=== PATIENT | male | born 1975 | race Caucasian/White ===

== ENCOUNTER 2018-05-06 12:48 | Emergency (ER) | payer SELFPAY ==
--- NOTE | 2018-05-06 13:30 | ED Physician Chart ---
ED Chief Complaint/HPI - Patient Information Date Seen:: 05/06/18 Time Seen:: 13:15 Chief Complaint:: left foot pain History of Present Illness:: Admitting medical box containing an alarm fell 9-10 feet landing on the dorsum of his left foot. Patient was wearing leather work shoes. 2 weeks ago patient was bitten on his left foot by his dog when he tried to interrupt a fight between his dog and another dog. Vitals:: Vital Signs - 8 hr 05/06/18 13:04 Temp 97.2 F HR 96 RR 18 BP 140/87 O2 Sat % 100 Historian:: Patient Review:: Nurse's Note Reviewed ED Review of Systems - Review of Systems General/Constitutional: No fever, No chills Skin: No skin lesions Head: No headache Eyes: No loss of vision ENT: No earache Neck: No neck pain, No swelling Cardio Vascular: No chest pain, No palpitations Pulmonary: No SOB GI: No nausea, No vomiting G/U: No dysuria Musculoskeletal: Bone or joint pain Psychiatric: No prior psych history Hematopoietic: No bruising, No lymphadenopathy Allergic/Immuno: No urticaria ED Past Medical History - Past Medical History Past Medical History: No significant medical hx Family History: None Social History: Non Smoker, Alcohol Surgical History: None Psychiatricy History: None Family Medical History - Family Member Father History Unknown: Yes ED Physical Exam - Physical Examination General/Constitutional: Awake, Well-developed, well-nourished, Alert, No distress, GCS 15, Non-toxic appearing, Ambulatory Head: Atraumatic Eyes: Lids, conjuctiva normal, PERRL, EOMI Skin: Nl inspection, No rash, No skin lesions, No ecchymosis, Well hydrated, No lymphadenopathy ENMT: External ears, nose nl, Nasal exam nl, Lips, teeth, gums nl Neck: Nontender, Full ROM w/o pain, No JVD, No nuchal rigidity, No bruit, No mass, No stridor Respiratory: Nl effort/Exclusion, Clear to Auscultation, No Wheeze/Rhonchi/Rales Cardio Vascular: RRR, No murmur, gallop, rubs, NL S1 S2 GI: No tenderness/rebounding/guarding, No organomegaly, No hernia, Normal BS's, Nondistended, No mass/bruits, No McBurney tenderness : No CVA tenderness Extremities: No tenderness or effusion Other Extremities comments:: Left foot: 3.5 out of 4 swelling of dorsum; 1 cm crust of dorsum noted (from dog bite); about 8 x 1 mm tender abrasion of dorsum over the base of the third/ fourth metatarsals Neuro/Psych: Alert/oriented, DTR's symmetric, Normal sensory exam, Normal motor strength, Judgement/insight normal, Mood normal, Normal gait, No focal deficits Misc: Normal back, No paraspinal tenderness ED Labs/Radiology/EKG Results - Radiology Results Results: X-ray left foot negative for fracture ED Assessment - Assessment General Assessment: Patient will be given a tetanus booster more for the dog bite which he sustained to the dorsum of the left foot than for the small abrasion sustained today. Abrasion cleansed with tap water and Band-Aid applied. ED Septic Shock - . Is Septic Shock (SBP<90, OR Lactate>4 mmol\L) present?: No - <6hrs of presentation: Vital Signs: Vital Signs - 8 hr 05/06/18 13:04 Temp 97.2 F HR 96 RR 18 BP 140/87 O2 Sat % 100 ED Reassessment (Disposition) - Reassessment Reassessment Condition:: Unchanged - Diagnosis Diagnosis:: contusion dorsum left foot - Aftercare/Follow up Instructions Aftercare/Follow-Up Instructions:: Refer to Discharge Instructions - Patient Disposition Discharge/Transfer:: Home Condition at Disposition:: Stable, Unchanged
--- NOTE | 2018-05-07 08:42 | Diagnostic Imaging Report ---
Exam: Left foot HISTORY: Trauma Exam: None Findings: Multiple views of left foot reviewed. The study demonstrates no evidence for acute fracture dislocation. Soft tissue swelling consistent with cellulitis. IMPRESSION: Cellulitis left foot.
== END 2018-05-06 15:00 | disposition home or self-care (01) ==
LOC: ER 12:48
DX: S90.32XA Contusion of left foot, initial encounter (principal); W17.89XA Other fall from one level to another, initial encounter; Y93.89 Activity, other specified; Y92.89 Other specified places as the place of occurrence of the external cause; Y99.8 Other external cause status
CPT/HCPCS: 73630-TC-LT; Z7502